=== PATIENT | female | born 1965 | race Caucasian/White ===

== ENCOUNTER 2018-10-21 08:38 | Day surgery (SDC) | payer OTHER, MEDICAID, SELFPAY ==
[2018-10-21] VITALS (9 sets, daily range): BP systolic 100–130; BP diastolic 66–89; PULSE 55–80; RESP 10–17; TEMP 36.2–36.7; O2SAT 95–98; BMI 28.0
[2018-10-21] MEDS: SODIUM CHLORIDE 0.9% 1,000 ML 200 ML IV (08:56)
--- NOTE | 2018-10-21 09:52 | PM.HP.1 ---
History of Present Illness Date Patient Seen: 10/21/18 Time Patient Seen: 09:52 Chief complaint: [id number] Narrative: 53-year-old woman presents for 1st ever colonoscopy. She has a history of constipation and occasional abdominal pain. With passes of stools she also has bright red blood on the toilet paper occasionally. No family history of colon polyps, no family history of colorectal cancers. No family history of IBD took entire prep tolerated well Patient History Medical History (Updated 10/21/18 @ 09:54 by Bam Merlos MD) Meningioma (Acute) Surgical History (Updated 02/05/18 @ 13:30 by Abeba Aldana) History of foot surgery (Resolved) Status post hysterectomy (Resolved) Status post stereotactic radiosurgery (Resolved) Social History household members: none Smoking Status: Never smoker Family & Social History Social History: household members none Tobacco & Substance use: Smoking Status Never smoker Meds Home Medications Medication Instructions Recorded Confirmed Type citalopram [Celexa] 10 mg PO QDAY #0 07/27/17 10/21/18 History clobetasol 0 TOPICAL BID #0 07/27/17 History Allergies Allergy/AdvReac Type Severity Reaction Status Date / Time codeine [CODEINE] Allergy Intermediate Itching Verified 10/21/18 08:59 Review of Systems Constitutional Constitutional: Denies fever(s) Eyes Eyes: Denies bulging eyes ENT Ears, Nose, Mouth, and Throat: No lip swelling Cardiovascular Cardiovascular: Denies generalize swelling Respiratory Respiratory: Denies stridor Gastrointestinal Gastrointestinal: Denies coffee ground emesis Musculoskeletal Musculoskeletal: Denies loss of height Integumentary/Breasts Skin/Breast: Denies wounds Neurologic Neurologic: Denies abnormal speech and Denies confusion Psychiatric Psychiatric: Denies confusion Endocrine Endocrine: Denies deepening of the voice Hematologic/Lymphatic Hematologic/Lymphatic: Denies lymphadenopathy Allergic/Immunologic Allergic/Immunologic: Denies lip swelling Exam Vital Signs (past 8 hours): - 10/21/18 09:07 Temperature 98.0 F Pulse Rate 80 Respiratory Rate 16 Blood Pressure 130/89 Pulse Oximetry 96 Oxygen Delivery Method Room Air Const General: cooperative and healthy appearing Orientation: alert [facility] Head: normal to inspection Nose: nares normal Mouth: oral mucosae normal and lip normal Eyes Eyelids: eyelids normal Conjunctivae: conjunctivae normal Sclera: sclerae normal Neck Neck: supple and other (No thyromegally) Chest Chest: other (LCTAB , regular respiratory effort) Cardio Rhythm: regular rhythm Heart Sounds: S1 normal, S2 normal, no gallops, no murmurs and no rubs Other: Well-healed Pfannenstiel incision scar, abdomen nontender nondistended Skin General: no rashes or lesions noted Neuro General: alert and awake Psych Appearance: grossly normal Affect: normal affect Assessment & Plan Assessment & Plan narrative: 53-year-old woman presents for diagnostic colonoscopy given rectal bleeding -and bloating abdominal pain She suspects she may have hemorrhoids, will evaluate for more proximal cause Risks including , perforation, hypoxia, missed lesion all discussed Patient ready to proceed
--- NOTE | 2018-10-21 09:55 | P.HP_ITS ---
History of Present Illness Date Patient Seen: 10/21/18 Time Patient Seen: 09:52 Chief complaint: [id number] Narrative: 53-year-old woman presents for 1st ever colonoscopy. She has a history of constipation and occasional abdominal pain. With passes of stools she also has bright red blood on the toilet paper occasionally. No family history of colon polyps, no family history of colorectal cancers. No family history of IBD took entire prep tolerated well Patient History Medical History (Updated 10/21/18 @ 09:54 by Bam Merlos MD) Meningioma (Acute) Surgical History (Updated 02/05/18 @ 13:30 by Abeba Aldana) History of foot surgery (Resolved) Status post hysterectomy (Resolved) Status post stereotactic radiosurgery (Resolved) Social History household members: none Smoking Status: Never smoker Family & Social History Social History: household members none Tobacco & Substance use: Smoking Status Never smoker Meds Home Medications Medication Instructions Recorded Confirmed Type citalopram [Celexa] 10 mg PO QDAY #0 07/27/17 10/21/18 History clobetasol 0 TOPICAL BID #0 07/27/17 History Allergies Allergy/AdvReac Type Severity Reaction Status Date / Time codeine [CODEINE] Allergy Intermediate Itching Verified 10/21/18 08:59 Review of Systems Constitutional Constitutional: Denies fever(s) Eyes Eyes: Denies bulging eyes ENT Ears, Nose, Mouth, and Throat: No lip swelling Cardiovascular Cardiovascular: Denies generalize swelling Respiratory Respiratory: Denies stridor Gastrointestinal Gastrointestinal: Denies coffee ground emesis Musculoskeletal Musculoskeletal: Denies loss of height Integumentary/Breasts Skin/Breast: Denies wounds Neurologic Neurologic: Denies abnormal speech and Denies confusion Psychiatric Psychiatric: Denies confusion Endocrine Endocrine: Denies deepening of the voice Hematologic/Lymphatic Hematologic/Lymphatic: Denies lymphadenopathy Allergic/Immunologic Allergic/Immunologic: Denies lip swelling Exam Vital Signs (past 8 hours): - 10/21/18 09:07 Temperature 98.0 F Pulse Rate 80 Respiratory Rate 16 Blood Pressure 130/89 Pulse Oximetry 96 Oxygen Delivery Method Room Air Const General: cooperative and healthy appearing Orientation: alert [facility] Head: normal to inspection Nose: nares normal Mouth: oral mucosae normal and lip normal Eyes Eyelids: eyelids normal Conjunctivae: conjunctivae normal Sclera: sclerae normal Neck Neck: supple and other (No thyromegally) Chest Chest: other (LCTAB , regular respiratory effort) Cardio Rhythm: regular rhythm Heart Sounds: S1 normal, S2 normal, no gallops, no murmurs and no rubs Other: Well-healed Pfannenstiel incision scar, abdomen nontender nondistended Skin General: no rashes or lesions noted Neuro General: alert and awake Psych Appearance: grossly normal Affect: normal affect Assessment & Plan Assessment & Plan narrative: 53-year-old woman presents for diagnostic colonos copy given rectal bleeding -and bloating abdominal pain She suspects she may have hemorrhoids, will evaluate for more proximal cause Risks including , perforation, hypoxia, missed lesion all discussed Patient ready to proceed
[2018-10-21] MEDS: fentaNYL 250 MCG/5 ML INJ IV (10:17)
[2018-10-21] MEDS: MIDAZOLAM 5 MG/5 ML VIAL IV (10:17)
--- NOTE | 2018-10-21 10:40 | PM.OP.ENDO ---
Operative Date/Time/Diagnoses Date of procedure: 10/21/18 Time of procedure: 10:40 Post-op diagnosis: same Procedure & Clinicians Study performed: Diagnostic colonoscopy -complete Same procedure as scheduled: Yes Indications: 53-year-old woman presents with rectal bleeding from presumed hemorrhoids but without history of prior colonoscopy. She presents for evaluation of her more proximal GI tract Surgeon: Bam Merlos Procedure Notes SCOAP/Timeout: Completed Procedure in detail: Patient was brought to the endoscopy suite a time-out was completed. She was sedated with a total of 7 mg of midazolam and 150 mcg fentanyl for the entire duration the procedure. A digital rectal exam was performed there were no mass identified. He did appear to have significant tenderness with ROGERIO. 160 cm pediatric colonoscope was introduced and navigated through the folds of her rectum rectosigmoid junction colon, the rectosigmoid junction was quite tight but was eventually negotiated. The the endoscope was then advanced to the cecum without much further difficult -the appendiceal orifice ileocecal valve and grows foot were all identified. The scope was then slowly withdrawn. No mucosal lesions were identified whatsoever. There were no diverticular changes. Scope was retroflexed in the rectum -there were a few benign-appearing anal polyps. Scope withdrawal time: 9 Sedation minutes: 35 Specimen(s): none sent Complications: none Impression: 1 Normal diagnostic colonoscopy Recommendations: Colonscopy in 10 years Plan for aftercare: PACU and then home, follow up with General surgery if persistent symptoms Follow up: as needed Disposition: PACU
== END 2018-10-21 12:09 | disposition home or self-care (01) ==
PROVIDERS: PCP Obstetrics & Gynecology; Visit Provider Surgery
PROC: 0DJD8ZZ Inspection of Lower Intestinal Tract, Via Natural or Artificial Opening Endoscopic (ICD-10-PCS; CPT 45378; principal; 2018-10-21 09:45)
DX: K62.5 Hemorrhage of anus and rectum (principal)
CPT/HCPCS: 45378; 99152; 99153; J2250; J3010

== ENCOUNTER → 2020-08-08 09:29 | Outpatient (CLI) | payer OTHER, MEDICAID, SELFPAY ==
[2020-08-08 23:52] LABS: Free T3, Triiodothyronine Free 2.91 pg/mL (2.77-5.27); Free T4, Direct Thyroxine 0.99 ng/dL (0.78-2.19)
[2020-08-09 00:06] LABS: TSH w/ Reflex to FT4 2.71 uIU/mL (0.47-4.68)
[2020-08-09 00:14] LABS: Erythrocyte Sedimentation Rate 5 MM/HR (0-20)
[2020-08-09 00:31] LABS: C-Reactive Protein Quant < 0.5 mg/dL (<1.0)
== END ==
PROVIDERS: PCP Physician Assistant Medical; Visit Provider Physician Assistant Medical
DX: D42.0 Neoplasm of uncertain behavior of cerebral meninges (principal); E03.9 Hypothyroidism, unspecified; N95.1 Menopausal and female climacteric states
CPT/HCPCS: 83001; 83002; 84439; 84443; 84481; 85651; 86140

== ENCOUNTER → 2020-08-29 09:44 | Outpatient (CLI) | payer OTHER, MEDICAID, SELFPAY ==
[2020-08-29 20:24] LABS: Cholesterol 229 mg/dL (140-199); HDL Cholesterol 56 mg/dL (40-60); LDL Cholesterol Calculated 149 mg/dL (<100); Triglycerides 119 mg/dL (35-150)
[2020-08-29 20:37] LABS: Free T3, Triiodothyronine Free 3.25 pg/mL (2.77-5.27); Free T4, Direct Thyroxine 1.01 ng/dL (0.78-2.19)
[2020-08-29 20:57] LABS: Estradiol, Total 13.5 pg/mL
[2020-09-08 03:36] LABS: Estrogen 36 pg/mL (.)
== END ==
PROVIDERS: PCP Physician Assistant Medical; Visit Provider Physician Assistant
DX: N95.2 Postmenopausal atrophic vaginitis (principal); E03.9 Hypothyroidism, unspecified; E78.5 Hyperlipidemia, unspecified
CPT/HCPCS: 80061; 82670; 82672; 84439; 84443; 84481

== ENCOUNTER → 2020-10-24 12:58 | Outpatient (CLI) | payer OTHER, MEDICAID, SELFPAY ==
[2020-10-24 19:08] LABS: Add Manual Diff / Slide Review NO; Basophils Absolute Auto 100 /uL (0-100); Basophils Percent Auto 0.9 % (0-2); Eosinophils Absolute Auto 300 /uL (0-450); Eosinophils Percent Auto 4.6 % (2-4); Hematocrit 44.1 % (36-46); Hemoglobin 14.7 g/dL (12.0-16.0); Lymphocytes Absolute Auto 1700 /uL (1100-4500); Lymphocytes Percent Auto 26.5 % (25-40); Mean Corpuscular HGB Conc 33.5 % (30-36); Mean Corpuscular Hemoglobin 29.4 PG (26-34); Mean Corpuscular Volume 87.8 fL (80-100); Monocytes Absolute Auto 600 /uL (0-900); Monocytes Percent Auto 9.8 % (3-14); Neutrophils Absolute Auto 3700 /uL (1500-7000); Neutrophils Percent Auto 58.2 % (50-75); Platelet Count 330 X10^3/uL (150-400); Red Blood Cell Count 5.02 X10^6/uL (4.0-5.2); Red Cell Distribution Width 13.8 % (11.6-14.8); White Blood Cell Count 6.3 X10^3/uL (4.5-11.0)
[2020-10-24 19:23] LABS: Cholesterol 266 mg/dL (140-199); HDL Cholesterol 58 mg/dL (40-60); LDL Cholesterol Calculated 185 mg/dL (<100); Triglycerides 116 mg/dL (35-150)
[2020-10-24 19:25] LABS: Alanine Aminotransferase 19 IU/L (<35); Albumin 4.5 g/dL (3.5-5.0); Albumin Globulin Ratio 1.5 (1.0-2.8); Alkaline Phosphatase 81 U/L (38-126); Aspartate Aminotransferase 25 IU/L (14-36); BUN Creatinine Ratio 19.3 (6-22); Bilirubin Total 1.1 mg/dL (0.2-1.3); Blood Urea Nitrogen 16 mg/dL (7-17); Carbon Dioxide 31 mmol/L (22-32); Chloride 103 mmol/L (98-107); Estimated Glomerular Filt Rate > 60.0 mL/min (>60); Globulin 3.1 g/dL (1.7-4.1); Glucose 91 mg/dL (70-100); HEMOLYSIS < 15 (0-50); Potassium 4.5 mmol/L (3.4-5.1); Sodium 141 mmol/L (137-145); Total Protein 7.6 g/dL (6.3-8.2)
[2020-10-24 19:35] LABS: Vitamin D 25 Hydroxy (D3) 40.2 ng/mL (30.0-100.0)
[2020-10-24 19:40] LABS: Free T3, Triiodothyronine Free 3.42 pg/mL (2.77-5.27); Free T4, Direct Thyroxine 1.14 ng/dL (0.78-2.19)
[2020-10-24 19:54] LABS: Thyroid Stimulating Hormone 2.03 uIU/mL (0.47-4.68)
[2020-10-26 06:08] LABS: Thyroid Peroxidase Antibodies 391 IU/mL (0-34)
[2020-10-26 19:36] LABS: Anti Thyroglobulin Antibody 118.8 IU/mL (0.0-0.9)
== END ==
PROVIDERS: PCP Physician Assistant Medical; Visit Provider Family Medicine
DX: E03.9 Hypothyroidism, unspecified (principal); E55.9 Vitamin D deficiency, unspecified; E78.00 Pure hypercholesterolemia, unspecified; F32.9 Major depressive disorder, single episode, unspecified; F41.9 Anxiety disorder, unspecified; R53.82 Chronic fatigue, unspecified; R73.9 Hyperglycemia, unspecified
CPT/HCPCS: 80053; 80061; 82306; 84439; 84443; 84481; 85025; 86376; 86800

== ENCOUNTER → 2021-08-02 09:38 | Outpatient (CLI) | payer OTHER, MEDICAID, SELFPAY ==
[2021-08-02 18:52] LABS: Add Manual Diff / Slide Review NO; Basophils Absolute Auto 100 /uL (0-100); Basophils Percent Auto 0.8 % (0-2); Eosinophils Absolute Auto 200 /uL (0-450); Eosinophils Percent Auto 3.5 % (2-4); Hematocrit 41.6 % (36-46); Hemoglobin 14.3 g/dL (12.0-16.0); Lymphocytes Absolute Auto 2000 /uL (1100-4500); Lymphocytes Percent Auto 29.6 % (25-40); Mean Corpuscular HGB Conc 34.4 % (30-36); Mean Corpuscular Hemoglobin 29.9 PG (26-34); Mean Corpuscular Volume 86.9 fL (80-100); Monocytes Absolute Auto 500 /uL (0-900); Monocytes Percent Auto 7.5 % (3-14); Neutrophils Absolute Auto 3900 /uL (1500-7000); Neutrophils Percent Auto 58.6 % (50-75); Platelet Count 333 X10^3/uL (150-400); Red Blood Cell Count 4.79 X10^6/uL (4.0-5.2); Red Cell Distribution Width 14.2 % (11.6-14.8); White Blood Cell Count 6.6 X10^3/uL (4.5-11.0)
[2021-08-02 18:57] LABS: Hemoglobin A1C% w Est Avg Glu 5.7 % (4.0-6.0)
[2021-08-02 19:04] LABS: Alanine Aminotransferase 18 IU/L (<35); Albumin 4.3 g/dL (3.5-5.0); Albumin Globulin Ratio 1.5 (1.0-2.8); Alkaline Phosphatase 61 U/L (38-126); Aspartate Aminotransferase 23 IU/L (14-36); BUN Creatinine Ratio 17.9 (6-22); Bilirubin Total 0.8 mg/dL (0.2-1.3); Blood Urea Nitrogen 15 mg/dL (7-17); Calcium 9.2 mg/dL (8.4-10.2); Carbon Dioxide 28 mmol/L (22-32); Chloride 105 mmol/L (98-107); Cholesterol 286 mg/dL (140-199); Estimated Glomerular Filt Rate > 60.0 mL/min (>60); Globulin 2.9 g/dL (1.7-4.1); Glucose 97 mg/dL (70-100); HDL Cholesterol 46 mg/dL (40-60); HEMOLYSIS < 15 (0-50); LDL Cholesterol Calculated 187 mg/dL (<100); Potassium 4.2 mmol/L (3.4-5.1); Sodium 142 mmol/L (137-145); Total Protein 7.2 g/dL (6.3-8.2); Triglycerides 264 mg/dL (35-150)
[2021-08-02 19:29] LABS: Thyroid Stimulating Hormone 1.42 uIU/mL (0.47-4.68)
[2021-08-04 12:11] LABS: Thyroid Peroxidase Antibodies >600 IU/mL (0-34)
[2021-08-06 23:40] LABS: Anti Thyroglobulin Antibody 628.2 IU/mL (0.0-0.9)
== END ==
PROVIDERS: PCP Physician Assistant; Visit Provider Family Medicine
DX: D32.0 Benign neoplasm of cerebral meninges (principal); E06.3 Autoimmune thyroiditis; E78.00 Pure hypercholesterolemia, unspecified; F32.9 Major depressive disorder, single episode, unspecified; L90.0 Lichen sclerosus et atrophicus
CPT/HCPCS: 80053; 80061; 83036; 84439; 84443; 85025; 86376; 86800

== ENCOUNTER → 2022-03-06 13:11 | Outpatient (CLI) | payer OTHER, MEDICAID, SELFPAY ==
[2022-03-06 19:26] LABS: Alanine Aminotransferase 23 IU/L (<35); Albumin 4.4 g/dL (3.5-5.0); Albumin Globulin Ratio 1.3 (1.0-2.8); Alkaline Phosphatase 91 U/L (38-126); Aspartate Aminotransferase 30 IU/L (14-36); BUN Creatinine Ratio 21.6 (6-22); Blood Urea Nitrogen 19 mg/dL (7-17); Calcium 9.4 mg/dL (8.4-10.2); Carbon Dioxide 29 mmol/L (22-32); Chloride 102 mmol/L (98-107); Cholesterol 280 mg/dL (140-199); Estimated Glomerular Filt Rate > 60 mL/min (>60); Globulin 3.4 g/dL (1.7-4.1); Glucose 89 mg/dL (70-100); HDL Cholesterol 44 mg/dL (40-60); HEMOLYSIS < 15 (0-50); LDL Cholesterol Calculated 196 mg/dL (<100); Sodium 139 mmol/L (137-145); Total Protein 7.8 g/dL (6.3-8.2); Triglycerides 200 mg/dL (35-150)
[2022-03-06 19:48] LABS: Free T4, Direct Thyroxine 0.96 ng/dL (0.78-2.19)
[2022-03-06 20:02] LABS: Thyroid Stimulating Hormone 2.76 uIU/mL (0.47-4.68)
== END ==
PROVIDERS: PCP Physician Assistant; Visit Provider Family Medicine
DX: E03.9 Hypothyroidism, unspecified (principal); E78.00 Pure hypercholesterolemia, unspecified; F32.9 Major depressive disorder, single episode, unspecified; L20.84 Intrinsic (allergic) eczema
CPT/HCPCS: 80053; 80061; 84439; 84443

== ENCOUNTER → 2022-05-02 15:50 | Outpatient (CLI) | payer OTHER, MEDICAID, SELFPAY ==
--- NOTE | 2022-05-02 15:53 | DI.US.S_ITS ---
PROCEDURE: US THYROID INDICATIONS: GOITER; HASHIMOTOS TECHNIQUE: Real-time scanning was performed of the thyroid gland, with image documentation. COMPARISON: None. FINDINGS: Right: Thyroid lobe measures 3.8 x 1.1 x 1.2 cm, and is mildly heterogeneous in echotexture. Left: Thyroid lobe measures 3.6 x 1.3 x 0.9 cm, and is mildly heterogeneous in echotexture. Isthmus: 2.1 mm thick. Nodule number: 1 Location: Left inferior Size: 0.5 x 0.3 x 0.4 cm. Composition: Solid Echogenicity: Hypoechoic Shape: wider than tall. Margins: Smooth Echogenic foci: None Total points: 4 ACR TI-RADS category: 4 IMPRESSION: 1. Subcentimeter T4 left thyroid nodule. No further follow-up recommended. 2. Slightly heterogeneous appearance of the thyroid parenchyma without increased vascularity. ACR TI-RADS definitions and recommendations: TI-RADS 1 (benign): 0 points. FNA not needed. TI-RADS 2 (not suspicious): 2 points. FNA not needed. TI-RADS 3 (mildly suspicious): 3 points. * FNA if 2.5 cm or larger, follow up if 1.5 cm or larger (at 1, 3, and 5 years). TI-RADS 4 (moderately suspicious): 4-6 points. * FNA if 1.5 cm or larger, follow up if 1 cm or larger (at 1, 2, 3, and 5 years). TI-RADS 5 (highly suspicious): 7 points or more. * FNA if 1 cm or larger, follow up if 0.5 cm or larger (every year for 5 years). Dictated by: Bety Crenshaw M.D. on 05/02/2022 at 16:41 Approved by: Bety Crenshaw M.D. on 05/02/2022 at 16:43
== END ==
PROVIDERS: PCP Family Medicine; Referring Provider Family Medicine; Visit Provider Family Medicine
DX: E06.3 Autoimmune thyroiditis (principal); E04.1 Nontoxic single thyroid nodule
CPT/HCPCS: 76536

== ENCOUNTER → 2022-05-15 10:42 | Outpatient (CLI) | payer OTHER, MEDICAID, SELFPAY ==
[2022-05-15 20:16] LABS: Free T4, Direct Thyroxine 1.08 ng/dL (0.78-2.19)
[2022-05-15 20:25] LABS: Erythrocyte Sedimentation Rate 3 MM/HR (0-20)
[2022-05-15 20:30] LABS: Thyroid Stimulating Hormone 1.29 uIU/mL (0.47-4.68)
[2022-05-17 07:35] LABS: Thyroid Peroxidase Antibodies 275 IU/mL (0-34)
[2022-05-25 20:27] LABS: Thyroglobulin by RIA 6.3 ng/mL (.)
== END ==
PROVIDERS: PCP Family Medicine; Visit Provider Family Medicine
DX: E06.3 Autoimmune thyroiditis (principal)
CPT/HCPCS: 84432; 84439; 84443; 85651; 86376; 86800

== ENCOUNTER → 2022-09-16 13:09 | Outpatient (CLI) | payer OTHER, MEDICAID, SELFPAY | PROVIDERS: PCP Family Medicine; Visit Provider Physician Assistant | DX: J02.9 Acute pharyngitis, unspecified (principal) | CPT/HCPCS: 87070; 87880 ==

== ENCOUNTER → 2022-10-20 11:02 | Outpatient (CLI) | payer OTHER, MEDICAID, SELFPAY ==
[2022-10-20 20:09] LABS: Add Manual Diff / Slide Review NO; Basophils Absolute Auto 0 /uL (0-100); Basophils Percent Auto 0.4 % (0-2); Eosinophils Absolute Auto 300 /uL (0-450); Hematocrit 43.8 % (36-46); Hemoglobin 14.8 g/dL (12.0-16.0); Lymphocytes Absolute Auto 1800 /uL (1100-4500); Lymphocytes Percent Auto 26.2 % (25-40); Mean Corpuscular HGB Conc 33.8 % (30-36); Mean Corpuscular Hemoglobin 29.1 PG (26-34); Mean Corpuscular Volume 86.1 fL (80-100); Monocytes Absolute Auto 500 /uL (0-900); Monocytes Percent Auto 7.6 % (3-14); Neutrophils Absolute Auto 4300 /uL (1500-7000); Neutrophils Percent Auto 61.8 % (50-75); Platelet Count 340 X10^3/uL (150-400); Red Blood Cell Count 5.08 X10^6/uL (4.0-5.2); White Blood Cell Count 6.9 X10^3/uL (4.5-11.0)
[2022-10-20 20:24] LABS: Alanine Aminotransferase 41 IU/L (<35); Albumin 4.3 g/dL (3.5-5.0); Albumin Globulin Ratio 1.3 (1.0-2.8); Alkaline Phosphatase 94 U/L (38-126); Aspartate Aminotransferase 32 IU/L (14-36); BUN Creatinine Ratio 21.1 (6-22); Blood Urea Nitrogen 16 mg/dL (7-17); Calcium 9.5 mg/dL (8.4-10.2); Carbon Dioxide 30 mmol/L (22-32); Chloride 102 mmol/L (98-107); Cholesterol 211 mg/dL (140-199); Estimated Glomerular Filt Rate > 60 mL/min (>60); Globulin 3.2 g/dL (1.7-4.1); Glucose 94 mg/dL (70-100); HDL Cholesterol 51 mg/dL (40-60); HEMOLYSIS < 15 (0-50); LDL Cholesterol Calculated 121 mg/dL (<100); Potassium 4.5 mmol/L (3.4-5.1); Sodium 138 mmol/L (137-145); Total Protein 7.5 g/dL (6.3-8.2); Triglycerides 196 mg/dL (35-150)
[2022-10-20 20:39] LABS: Free T4, Direct Thyroxine 0.96 ng/dL (0.78-2.19)
[2022-10-20 20:40] LABS: Free T3, Triiodothyronine Free 4.46 pg/mL (2.77-5.27)
[2022-10-20 20:53] LABS: Thyroid Stimulating Hormone 0.501 uIU/mL (0.47-4.68)
== END ==
PROVIDERS: PCP Family Medicine; Visit Provider Family Medicine
DX: D32.0 Benign neoplasm of cerebral meninges (principal); E06.3 Autoimmune thyroiditis; F43.10 Post-traumatic stress disorder, unspecified; R53.83 Other fatigue
CPT/HCPCS: 80053; 80061; 84439; 84443; 84481; 85025

== ENCOUNTER → 2023-01-15 11:05 | Outpatient (CLI) | payer OTHER, MEDICAID, SELFPAY ==
[2023-01-15 19:34] LABS: Alanine Aminotransferase 40 IU/L (<35); Albumin 4.3 g/dL (3.5-5.0); Albumin Globulin Ratio 1.5 (1.0-2.8); Alkaline Phosphatase 96 U/L (38-126); Aspartate Aminotransferase 35 IU/L (14-36); BUN Creatinine Ratio 20.5 (6-22); Bilirubin Total 0.8 mg/dL (0.2-1.3); Blood Urea Nitrogen 15 mg/dL (7-17); Calcium 9.2 mg/dL (8.4-10.2); Carbon Dioxide 28 mmol/L (22-32); Chloride 102 mmol/L (98-107); Estimated Glomerular Filt Rate > 60 mL/min (>60); Globulin 2.8 g/dL (1.7-4.1); Glucose 84 mg/dL (70-100); HEMOLYSIS < 15 (0-50); Potassium 3.9 mmol/L (3.4-5.1); Sodium 138 mmol/L (137-145); Total Protein 7.1 g/dL (6.3-8.2)
[2023-01-15 19:47] LABS: LDL Cholesterol Direct 106 mg/dL (<100)
[2023-01-16 23:48] LABS: HBsAg Screen Negative (Negative); Hepatitis A Antibody IgM Negative (Negative); Hepatitis B Core Antibody IgM Negative (Negative); Hepatitis C Antibody Non Reactive (Non Reactive)
== END ==
PROVIDERS: PCP Family Medicine; Visit Provider Family Medicine
DX: R74.01 Elevation of levels of liver transaminase levels (principal); E78.2 Mixed hyperlipidemia; E03.9 Hypothyroidism, unspecified
CPT/HCPCS: 80053; 80074; 83721; 84443

== ENCOUNTER → 2023-06-23 11:40 | Outpatient (CLI) | payer OTHER, MEDICAID, SELFPAY ==
[2023-06-23 20:13] LABS: HEMOLYSIS < 15 (0-50); Iron 101 ug/dL (37-170)
[2023-06-23 20:15] LABS: Alanine Aminotransferase 25 IU/L (<35); Albumin 4.3 g/dL (3.5-5.0); Albumin Globulin Ratio 1.6 (1.0-2.8); Alkaline Phosphatase 77 U/L (38-126); Aspartate Aminotransferase 27 IU/L (14-36); BUN Creatinine Ratio 14.8 (6-22); Bilirubin Total 0.9 mg/dL (0.2-1.3); Blood Urea Nitrogen 12 mg/dL (7-17); Calcium 9.4 mg/dL (8.4-10.2); Carbon Dioxide 29 mmol/L (22-32); Chloride 103 mmol/L (98-107); Estimated Glomerular Filt Rate > 60 mL/min (>60); Globulin 2.7 g/dL (1.7-4.1); Glucose 88 mg/dL (70-100); HEMOLYSIS < 15 (0-50); Potassium 4.4 mmol/L (3.4-5.1); Sodium 140 mmol/L (137-145)
[2023-06-23 20:24] LABS: Percent Iron Saturation 43 % (15-50); Total Iron Binding Capacity 234 ug/dL (265-497); Transferrin 192 mg/dL (206-381)
[2023-06-23 20:45] LABS: Thyroid Stimulating Hormone 1.08 uIU/mL (0.47-4.68)
[2023-06-23 20:51] LABS: Ferritin 39 ng/mL (11-264)
[2023-06-29 20:54] LABS: ANA Screen, IFA Negative (.)
== END ==
PROVIDERS: PCP Family Medicine; Visit Provider Family Medicine
DX: R74.01 Elevation of levels of liver transaminase levels (principal); E06.3 Autoimmune thyroiditis; L65.9 Nonscarring hair loss, unspecified
CPT/HCPCS: 80053; 82728; 83540; 83550; 84443; 86038

== ENCOUNTER → 2023-10-27 11:38 | Outpatient (CLI) | payer OTHER, MEDICAID, SELFPAY ==
--- NOTE | 2023-10-27 11:40 | DI.MG.S_ITS ---
BILATERAL DIGITAL SCREENING MAMMOGRAM 3D/2D WITH CAD: 10/27/2023 CLINICAL: Routine screening. Family history of breast cancer. Comparison is made to exams dated: 07/12/2015 mammogram, 05/26/2012 mammogram, and 05/20/2012 mammogram - [facility]. Both breasts are heterogeneously dense, which may obscure small masses (category c / 51-75% glandular tissue). Current study was also evaluated with a Computer Aided Detection (CAD) system. No significant masses, calcifications, or other findings are seen in either breast. There has been no significant interval change. IMPRESSION: NEGATIVE There is no mammographic evidence of malignancy. A 1 year screening mammogram is recommended. Based on the Tyrer Cuzick model (a risk assessment model) the patient's lifetime risk is 12.6% and her 10 year risk is 4.4%. According to the ACR, ACS, and NCCN guidelines, an annual breast MRI exam along with mammogram is recommended if the patient's lifetime risk is 20% or greater. This exam was interpreted at Station ID: [id number]. NOTE: For mammograms, a report in lay terms will be sent to the patient. Approximately 15% of breast malignancies will not be visualized mammographically. In the management of a palpable breast mass, a negative mammogram must not discourage biopsy of a clinically suspicious lesion. Electronically Signed By: Porfirio almanzar/juan:10/30/2023 08:49:08 letter sent: Normal Exam ACR BI-RADS Category 1: Negative [id number]
== END ==
PROVIDERS: PCP Family Medicine; Referring Provider Family Medicine; Visit Provider Family Medicine
DX: Z12.31 Encounter for screening mammogram for malignant neoplasm of breast (principal); Z80.3 Family history of malignant neoplasm of breast; R92.333 Mammographic heterogeneous density, bilateral breasts
CPT/HCPCS: 77063; 77067

== ENCOUNTER → 2024-02-16 11:23 | Outpatient (CLI) | payer OTHER, MEDICAID, SELFPAY ==
[2024-02-16 18:59] LABS: Alanine Aminotransferase 16 IU/L (<35); Albumin 4.4 g/dL (3.5-5.0); Albumin Globulin Ratio 1.8 (1.0-2.8); Alkaline Phosphatase 85 U/L (38-126); Aspartate Aminotransferase 22 IU/L (14-36); BUN Creatinine Ratio 19.3 (6-22); Bilirubin Total 0.9 mg/dL (0.2-1.3); Blood Urea Nitrogen 16 mg/dL (7-17); Calcium 9.6 mg/dL (8.4-10.2); Carbon Dioxide 27 mmol/L (22-32); Chloride 103 mmol/L (98-107); Estimated Glomerular Filt Rate > 60 mL/min (>60); Globulin 2.5 g/dL (1.7-4.1); Glucose 92 mg/dL (70-100); HEMOLYSIS < 15 (0-50); Potassium 4.5 mmol/L (3.4-5.1); Sodium 138 mmol/L (137-145); Total Protein 6.9 g/dL (6.3-8.2)
[2024-02-16 19:01] LABS: Add Manual Diff / Slide Review NO; Basophils Absolute Auto 0 /uL (0-100); Basophils Percent Auto 0.4 % (0-2); Eosinophils Absolute Auto 200 /uL (0-450); Eosinophils Percent Auto 3.2 % (2-4); Hematocrit 42.2 % (36-46); Hemoglobin 14.2 g/dL (12.0-16.0); Lymphocytes Absolute Auto 2000 /uL (1100-4500); Lymphocytes Percent Auto 29.3 % (25-40); Mean Corpuscular HGB Conc 33.6 % (30-36); Mean Corpuscular Hemoglobin 29.2 PG (26-34); Mean Corpuscular Volume 86.8 fL (80-100); Monocytes Absolute Auto 500 /uL (0-900); Monocytes Percent Auto 7.4 % (3-14); Neutrophils Absolute Auto 4000 /uL (1500-7000); Neutrophils Percent Auto 59.7 % (50-75); Platelet Count 410 X10^3/uL (150-400); Red Blood Cell Count 4.86 X10^6/uL (4.0-5.2); Red Cell Distribution Width 13.5 % (11.6-14.8); White Blood Cell Count 6.7 X10^3/uL (4.5-11.0)
[2024-02-16 19:12] LABS: LDL Cholesterol Direct 102 mg/dL (<100)
[2024-02-16 19:18] LABS: Vitamin D 25 Hydroxy (D3) 32.1 ng/mL (30.0-100.0)
[2024-02-16 19:31] LABS: Thyroid Stimulating Hormone 1.11 uIU/mL (0.47-4.68)
[2024-02-16 19:34] LABS: Ferritin 48 ng/mL (11-264)
[2024-02-16 19:51] LABS: Vitamin B12 899 pg/mL (239-931)
== END ==
PROVIDERS: PCP Family Medicine; Visit Provider Family Medicine
DX: R26.89 Other abnormalities of gait and mobility (principal); E78.2 Mixed hyperlipidemia; Q85.02 Neurofibromatosis, type 2; E55.9 Vitamin D deficiency, unspecified; E03.9 Hypothyroidism, unspecified; Z86.2 Personal history of diseases of the blood and blood-forming organs and certain disorders involving the immune mechanism
CPT/HCPCS: 80053; 82306; 82607; 82728; 83721; 84443; 85025

== ENCOUNTER → 2024-10-13 13:39 | Outpatient (CLI) | payer OTHER, SELFPAY ==
[2024-10-13 19:02] LABS: Hematocrit 42.6 % (36-46); Hemoglobin 14.9 g/dL (12.0-16.0); Mean Corpuscular Hemoglobin 30.6 PG (26-34); Mean Corpuscular Volume 87.5 fL (80-100); Platelet Count 360 X10^3/uL (150-400); Red Blood Cell Count 4.86 X10^6/uL (4.0-5.2); Red Cell Distribution Width 14.1 % (11.6-14.8); White Blood Cell Count 6.2 X10^3/uL (4.5-11.0)
[2024-10-13 19:15] LABS: HEMOLYSIS 29 (0-50); Iron 95 ug/dL (37-170)
[2024-10-13 19:20] LABS: Alanine Aminotransferase 15 IU/L (<35); Albumin 4.5 g/dL (3.5-5.0); Albumin Globulin Ratio 1.7 (1.0-2.8); Alkaline Phosphatase 70 U/L (38-126); Aspartate Aminotransferase 27 IU/L (14-36); BUN Creatinine Ratio 24.7 (6-22); Bilirubin Total 1.3 mg/dL (0.2-1.3); Blood Urea Nitrogen 20 mg/dL (7-17); Calcium 9.3 mg/dL (8.4-10.2); Carbon Dioxide 28 mmol/L (22-32); Chloride 101 mmol/L (98-107); Estimated Glomerular Filt Rate > 60 mL/min (>60); Globulin 2.7 g/dL (1.7-4.1); Glucose 85 mg/dL (70-99); HEMOLYSIS < 15 (0-50); Potassium 4.4 mmol/L (3.4-5.1); Sodium 137 mmol/L (137-145); Total Protein 7.2 g/dL (6.3-8.2)
[2024-10-13 19:27] LABS: Percent Iron Saturation 39 % (15-50); Total Iron Binding Capacity 243 ug/dL (265-497); Transferrin 208 mg/dL (206-381)
[2024-10-13 19:36] LABS: Vitamin D 25 Hydroxy (D3) 38.9 ng/mL (30.0-100.0)
[2024-10-13 19:51] LABS: Thyroid Stimulating Hormone 2.31 uIU/mL (0.47-4.68)
[2024-10-13 19:53] LABS: Ferritin 45 ng/mL (11-264)
== END ==
PROVIDERS: PCP Family Medicine; Visit Provider Family Medicine
DX: E03.9 Hypothyroidism, unspecified (principal); E55.9 Vitamin D deficiency, unspecified; R26.89 Other abnormalities of gait and mobility; R29.818 Other symptoms and signs involving the nervous system; R29.898 Other symptoms and signs involving the musculoskeletal system; I69.910 Attention and concentration deficit following unspecified cerebrovascular disease; F41.9 Anxiety disorder, unspecified; Q85.02 Neurofibromatosis, type 2; Z86.2 Personal history of diseases of the blood and blood-forming organs and certain disorders involving the immune mechanism; Z79.890 Hormone replacement therapy
CPT/HCPCS: 80053; 82306; 82728; 83540; 83550; 84443; 85027; 86140

== ENCOUNTER → 2025-03-14 11:24 | Outpatient (CLI) | payer OTHER, SELFPAY ==
[2025-03-14 19:11] LABS: Cholesterol 251 mg/dL (140-199); HDL Cholesterol 55 mg/dL (40-60); Triglycerides 172 mg/dL (35-150)
== END ==
PROVIDERS: PCP Family Medicine; Visit Provider Family Medicine
DX: E78.2 Mixed hyperlipidemia (principal)
CPT/HCPCS: 80061